=== PATIENT | male | born 1955 | race Two or more races ===

== ENCOUNTER → 2017-07-12 | Outpatient (CLI) | payer OTHER | END | disposition home or self-care (01) | LOC: MRI 12:36 | DX: M54.17 Radiculopathy, lumbosacral region (principal); M50.120 Mid-cervical disc disorder, unspecified level | CPT/HCPCS: 72141; 72148 ==

== ENCOUNTER → 2017-07-12 | Outpatient (CLI) | payer OTHER | END | disposition home or self-care (01) | LOC: TOM 13:26 | DX: M50.120 Mid-cervical disc disorder, unspecified level (principal) ==

== ENCOUNTER 2017-07-19 11:57 | Outpatient (CLI) | payer OTHER | END 2017-07-19 11:59 | disposition home or self-care (01) | LOC: NUCLEAR 11:57 | DX: M48.06 Spinal stenosis, lumbar region (principal); Z98.1 Arthrodesis status ==

== ENCOUNTER → 2017-09-05 | Outpatient (CLI) | payer OTHER | END | disposition home or self-care (01) | LOC: MRI 11:15 | DX: G45.8 Other transient cerebral ischemic attacks and related syndromes (principal) | CPT/HCPCS: 70551 ==

== ENCOUNTER 2017-09-27 08:12 | Outpatient (CLI) | payer OTHER | END 2017-09-27 08:15 | disposition home or self-care (01) | LOC: NUCLEAR 08:12 | DX: I63.09 Cerebral infarction due to thrombosis of other precerebral artery (principal) ==

== ENCOUNTER 2017-10-30 11:47 | Outpatient (CLI) | payer OTHER | END 2017-10-30 15:37 | disposition home or self-care (01) | LOC: RAD 11:47 | DX: M48.07 Spinal stenosis, lumbosacral region (principal) ==

== ENCOUNTER 2017-11-05 08:22 | Outpatient (CLI) | payer OTHER | END 2017-11-05 17:00 | disposition home or self-care (01) | LOC: MRI 08:22 | DX: M48.061 Spinal stenosis, lumbar region without neurogenic claudication (principal); M96.1 Postlaminectomy syndrome, not elsewhere classified | CPT/HCPCS: 72158 ==

== ENCOUNTER 2017-12-23 10:04 | Outpatient (CLI) | payer OTHER | END 2017-12-25 15:47 | disposition home or self-care (01) | LOC: RAD 10:04 | DX: M86.18 Other acute osteomyelitis, other site (principal) ==

== ENCOUNTER → 2018-02-10 | Outpatient (CLI) | payer OTHER | END | disposition home or self-care (01) | LOC: RAD 12:20 | DX: M96.1 Postlaminectomy syndrome, not elsewhere classified (principal) ==

== ENCOUNTER 2018-03-20 13:25 | Outpatient (CLI) | payer OTHER | END 2018-03-20 17:00 | disposition home or self-care (01) | LOC: RAD 13:25 | DX: M96.1 Postlaminectomy syndrome, not elsewhere classified (principal) ==

== ENCOUNTER 2018-05-21 14:25 | Outpatient (CLI) | payer OTHER | END 2018-05-21 17:00 | disposition home or self-care (01) | LOC: RAD 14:25 | DX: M96.1 Postlaminectomy syndrome, not elsewhere classified (principal) ==

== ENCOUNTER 2018-12-17 10:24 | Outpatient (CLI) | payer OTHER | END 2018-12-17 17:00 | disposition home or self-care (01) | LOC: RAD 10:24 | DX: M54.17 Radiculopathy, lumbosacral region (principal) ==

== ENCOUNTER 2018-12-22 11:29 | Outpatient (CLI) | payer OTHER | END 2018-12-22 17:00 | disposition home or self-care (01) | LOC: TOM 11:29 | DX: M48.061 Spinal stenosis, lumbar region without neurogenic claudication (principal); M86.18 Other acute osteomyelitis, other site ==

== ENCOUNTER 2018-12-23 11:18 | Outpatient (CLI) | payer OTHER | END 2018-12-23 17:00 | disposition home or self-care (01) | LOC: MRI 11:18 | DX: M54.2 Cervicalgia (principal) | CPT/HCPCS: 72141 ==

== ENCOUNTER 2019-05-15 13:34 | Outpatient (CLI) | payer OTHER | END 2019-05-15 14:04 | disposition home or self-care (01) | LOC: NUCLEAR 13:34 | DX: I73.9 Peripheral vascular disease, unspecified (principal) ==

== ENCOUNTER 2020-07-07 07:17 | Outpatient (CLI) | payer OTHER | END 2020-07-07 08:13 | disposition home or self-care (01) | LOC: NUCLEAR 07:17 | DX: F17.210 Nicotine dependence, cigarettes, uncomplicated (principal); I25.10 Atherosclerotic heart disease of native coronary artery without angina pectoris; I65.23 Occlusion and stenosis of bilateral carotid arteries ==

== ENCOUNTER 2020-10-19 10:25 | Outpatient (CLI) | payer OTHER | END 2020-10-19 10:53 | disposition home or self-care (01) | LOC: LAB 10:25 | DX: E78.5 Hyperlipidemia, unspecified (principal); I10 Essential (primary) hypertension ==

== ENCOUNTER → 2020-10-19 | Outpatient (CLI) | payer OTHER | END | disposition home or self-care (01) | LOC: NUCLEAR 07-08 08:00 | DX: I25.10 Atherosclerotic heart disease of native coronary artery without angina pectoris (principal); F17.210 Nicotine dependence, cigarettes, uncomplicated; G45.1 Carotid artery syndrome (hemispheric) ==

== ENCOUNTER 2021-01-11 08:00 | Outpatient (CLI) | payer OTHER | END 2021-01-11 08:30 | disposition home or self-care (01) | LOC: PPH VACUNA 08:00 | DX: Z23 Encounter for immunization (principal) ==

== ENCOUNTER 2024-12-08 08:06 | Outpatient (CLI) | payer OTHER | END 2024-12-08 14:57 | disposition home or self-care (01) | LOC: RAD 08:06 | DX: S30.0XXA Contusion of lower back and pelvis, initial encounter (principal) ==

== ENCOUNTER 2024-12-09 10:07 | Outpatient (CLI) | payer OTHER | END 2024-12-09 10:30 | disposition home or self-care (01) | LOC: MRI 10:07 | PROVIDERS: ATTEND Radiology Diagnostic Radiology | DX: S30.0XXA Contusion of lower back and pelvis, initial encounter (principal) | CPT/HCPCS: 72148 ==

== ENCOUNTER 2024-12-14 08:19 | Outpatient (CLI) | payer OTHER | END 2024-12-14 08:20 | disposition home or self-care (01) | LOC: NUCLEAR 08:19 | PROVIDERS: ATTEND Radiology Diagnostic Radiology | DX: M81.0 Age-related osteoporosis without current pathological fracture (principal) ==

== ENCOUNTER 2025-03-30 09:35 | Outpatient (CLI) | payer OTHER ==
[2025-03-30 12:22] LABS: ALT/SGPT 18.0 U/L (12-78); AST/SGOT 14.0 U/L (15-37); BILIRUBIN TOTAL 0.48 mg/dL (0.3-1.2); BUN CREA RATIO 16.0 (7.0-25.0); CREATININE SERUM 0.82 mg/dL (0.70-1.30); GFR 92.88; GLOBULINA 5.2 G/DL (2.4-3.5); GLUCOSE FASTING 99.0 mg/dL (65-100); OSMOLALITY SERUM 285.0 MOSM/KG (275-295); T4 TOTAL 8.52 UG/DL (4.5-12.1); TSH 1.91 uIU/mL (0.358-3.74)
[2025-03-30 13:55] LABS: T3 TOTAL 1.32 ng/ml (0.846-2.02)
[2025-03-30 13:56] LABS: VITAMIN D3 25 HYDROXY 25.37 ng/ml (30-120)
[2025-04-01 12:07] LABS: CALCIUM IONIZED 5.1 mg/dL (4.5-5.6)
== END 2025-03-30 14:55 | disposition home or self-care (01) ==
LOC: LAB 09:35
DX: E21.0 Primary hyperparathyroidism (principal); E55.9 Vitamin D deficiency, unspecified; D51.9 Vitamin B12 deficiency anemia, unspecified; E04.1 Nontoxic single thyroid nodule; E29.1 Testicular hypofunction

== ENCOUNTER 2025-03-30 10:12 | Outpatient (CLI) | payer OTHER | END 2025-03-30 10:14 | disposition home or self-care (01) | LOC: NUCLEAR 10:12 | PROVIDERS: ATTEND Neurological Surgery | DX: S32.019A Unspecified fracture of first lumbar vertebra, initial encounter for closed fracture (principal) | CPT/HCPCS: 78315; A9503 ==

== ENCOUNTER → 2025-03-30 | Outpatient (CLI) | payer OTHER | END | disposition home or self-care (01) | LOC: MRI 10:28 | PROVIDERS: ATTEND Neurological Surgery | DX: S32.010S Wedge compression fracture of first lumbar vertebra, sequela (principal); M51.16 Intervertebral disc disorders with radiculopathy, lumbar region; M47.26 Other spondylosis with radiculopathy, lumbar region; M99.73 Connective tissue and disc stenosis of intervertebral foramina of lumbar region; M48.062 Spinal stenosis, lumbar region with neurogenic claudication; F17.219 Nicotine dependence, cigarettes, with unspecified nicotine-induced disorders; J44.9 Chronic obstructive pulmonary disease, unspecified; M43.22 Fusion of spine, cervical region; M43.23 Fusion of spine, cervicothoracic region; M47.12 Other spondylosis with myelopathy, cervical region | CPT/HCPCS: 72141 ==

== ENCOUNTER → 2025-05-04 | Outpatient (CLI) | payer OTHER | END | disposition home or self-care (01) | LOC: RAD 11:01 | DX: M48.062 Spinal stenosis, lumbar region with neurogenic claudication (principal); M48.07 Spinal stenosis, lumbosacral region ==